=== PATIENT | female | born 1995 | race Two or more races ===

== ENCOUNTER 2022-02-15 00:34 | Emergency (ER) | payer SELFPAY ==
[~2022-02-15] VITALS: Ht 160 cm; Wt 61.4 kg
[2022-02-15 00:36] VITALS: BP 159/92
== END 2022-02-15 01:43 | disposition left against medical advice (07) ==
LOC: M ED 00:34
DX: Z53.21 Procedure and treatment not carried out due to patient leaving prior to being seen by health care provider (principal)